=== PATIENT | female | born 1965 | race Caucasian/White ===

== ENCOUNTER 2021-07-19 17:39 | Emergency (ER) | payer OTHER ==
[2021-07-19 20:50] LABS: HEMOGLOBIN 14.7 gm/dl (12.3-15.3); RED BLOOD COUNT 4.92 M/UL (4.00-5.10); WHITE BLOOD COUNT 9.1 K/UL (4.5-11.0)
[2021-07-19 21:17] LABS: BUN/CREATININE RATIO 8 (0-10)
[2021-07-20] MEDS ORDERED: LASIX20 MG PO (02:03)
[2021-07-20] MEDS ORDERED: K-TAB ER20 MEQ PO (02:03)
[2021-07-20] MEDS ORDERED: MELOXICAM7.5 MG PO (02:03)
[2021-07-20] MEDS ORDERED: IMITREX50 MG PO (02:03)
[2021-07-21] MEDS ORDERED: CEPHALEXIN500 M1 PO (02:12)
== END 2021-07-20 02:33 | disposition home or self-care (01) ==
LOC: ER1 17:39
PROVIDERS: Family Medicine
DX: R60.0 Localized edema (principal); G43.909 Migraine, unspecified, not intractable, without status migrainosus; E87.6 Hypokalemia; J44.9 Chronic obstructive pulmonary disease, unspecified; Z90.49 Acquired absence of other specified parts of digestive tract; Z90.710 Acquired absence of both cervix and uterus; F17.210 Nicotine dependence, cigarettes, uncomplicated
CPT/HCPCS: 71045; 73610; 80053; 82550; 82553; 83880; 84484; 85025; 85652; 86140; 93005; 96374; 96375; 99284; J0780; J1885

== ENCOUNTER 2021-07-20 20:50 | Emergency (ER) | payer OTHER ==
[~2021-07-20 20:50] MED LIST: IMITREX50 MG PO; K-TAB ER20 MEQ PO; LASIX20 MG PO; MELOXICAM7.5 MG PO
[2021-07-20 21:51] LABS: BUN/CREATININE RATIO 10 (0-10)
[2021-07-20 21:53] LABS: HEMOGLOBIN 12.9 gm/dl (12.3-15.3); WHITE BLOOD COUNT 7.1 K/UL (4.5-11.0)
[2021-07-20 21:55] LABS: RED BLOOD COUNT 4.33 M/UL (4.00-5.10)
[2021-07-21] MEDS ORDERED: CEPHALEXIN500 M1 PO (02:12)
== END 2021-07-21 02:16 | disposition home or self-care (01) ==
LOC: ER1 20:50
PROVIDERS: Physician Assistant
DX: L03.116 Cellulitis of left lower limb (principal); M79.671 Pain in right foot; F17.210 Nicotine dependence, cigarettes, uncomplicated
CPT/HCPCS: 73701; 80053; 83605; 85025; 85652; 86140; 96372; 99284; J1885; Q9967